=== PATIENT | female | born 1940 | race Caucasian/White ===

== ENCOUNTER → 2016-09-14 | Outpatient (CLI) | payer MEDICARE | END | disposition home or self-care (01) | LOC: PCVCCLINIC 13:49 | PROVIDERS: ATTEND Internal Medicine Cardiovascular Disease | DX: I25.10 Atherosclerotic heart disease of native coronary artery without angina pectoris (principal); I10 Essential (primary) hypertension; I71.4 Abdominal aortic aneurysm, without rupture; I73.9 Peripheral vascular disease, unspecified; J44.9 Chronic obstructive pulmonary disease, unspecified; I51.7 Cardiomegaly; E78.5 Hyperlipidemia, unspecified; K21.9 Gastro-esophageal reflux disease without esophagitis; Z89.421 Acquired absence of other right toe(s); Z87.891 Personal history of nicotine dependence; Z88.5 Allergy status to narcotic agent; Z79.899 Other long term (current) drug therapy | CPT/HCPCS: 80061; 93005; G0463 ==

== ENCOUNTER → 2017-01-03 | Outpatient (CLI) | payer MEDICARE ==
--- NOTE | 2017-01-03 12:05 | PCVCIMAG ---
APPROVED REPORT Study performed: 01/03/2017 08:58:51 EXAM: Comprehensive 2D, Doppler, and color-flow Echocardiogram Patient Location: Echo lab Status: routine BSA: 1.56 HR: 67 bpmBP: 110/70 mmHg Rhythm: NSR Other Information Study Quality: Adequate Risk Factors: Cardiac Risk Factors: HTN Indications Congestive Heart Failure Dyspnea 2D Dimensions LVEF(%): 20.40 (>50%) IVSd: 9.67 (7-11mm) LVDd: 56.72 mm PWd: 10.82 (7-11mm)Ascending Ao: 35.57 (22-36mm) LVDs: 51.38 (25-40mm) Left Atrium: 44.49 (27-40mm) Aortic Root: 36.12 mm LV Single Plane 4CH: 33.55 % LV Single Plane 2CH: 36.09 %Weiss's LVEF: 34.82 % Biplane EF: 35.7 % Volumes Left Atrial Volume (Systole) Single Plane 4CH: 99.19 mLSingle Plane 2CH: 116.49 mL LA ESV Index: 69.00 mL/m2 Aortic Valve AoV Peak Matt.: 1.32 m/s AO Peak Gr.: 7.00 mmHgLVOT Max P.89 mmHg LVOT Max V: 0.69 m/s AI Vmax: 4.38 m/s AI Knott: 3.80 m/s2 AI PHT: 334.20 ms Mitral Valve E/A Ratio: 2.3 MV Decel. Time: 206.63 ms MV E Max Matt.: 1.15 m/s MV A Matt.: 0.50 m/s IVRT: 128.03 ms Pulmonary Valve PV Peak Matt.: 0.68 m/sPV Peak Gr.: 1.86 mmHg Pulmonary Vein P Vein S: 0.38 m/sP Vein A: 0.39 m/s P Vein D: 0.66 m/sP Vein A Dur.: 141.9 msec P Vein S/D Ratio: 0.58 Tricuspid Valve TR Peak Matt.: 2.25 m/s TR Peak Gr.: 20.18 mmHg Left Ventricle The left ventricle is normal size. There is normal LV segmental wall motion. There is normal left ventricular wall thickness. Left ventricular systolic function is moderate to severely decreased. LVEF is 35%. Grade I - abnormal relaxation pattern. Right Ventricle The right ventricle is normal size. The right ventricular systolic function is normal. Atria Left atrium is severely dilated. The right atrium size is normal. Aortic Valve The aortic valve is normal in structure. Moderate aortic regurgitation. There is no aortic valvular stenosis. Mitral Valve The mitral valve is normal in structure. Moderate mitral regurgitation. No evidence of mitral valve stenosis. Tricuspid Valve The tricuspid valve is normal in structure. Mild tricuspid regurgitation with PAP of 27 mmHg. Pulmonic Valve The pulmonary valve is normal in structure. There is no pulmonic valvular regurgitation. Great Vessels The aortic root is normal in size. IVC is normal in size and collapses with >50% inspiration Pericardium There is no pericardial effusion. <Conclusion> The left ventricle is normal size. Left ventricular systolic function is moderate to severely decreased. LVEF is 35%. Grade I - abnormal relaxation pattern. The right ventricle is normal size. Left atrium is severely dilated. The right atrium size is normal. Moderate aortic regurgitation. There is no aortic valvular stenosis. Moderate mitral regurgitation. Mild tricuspid regurgitation with PAP of 27 mmHg. There is no pericardial effusion.
== END | disposition home or self-care (01) ==
LOC: PCVCIMAG 08:49
PROVIDERS: ATTEND Internal Medicine Cardiovascular Disease
DX: I11.0 Hypertensive heart disease with heart failure (principal); I25.10 Atherosclerotic heart disease of native coronary artery without angina pectoris; I73.9 Peripheral vascular disease, unspecified; I42.8 Other cardiomyopathies; E78.00 Pure hypercholesterolemia, unspecified; J44.9 Chronic obstructive pulmonary disease, unspecified; I71.4 Abdominal aortic aneurysm, without rupture; I50.9 Heart failure, unspecified; I08.3 Combined rheumatic disorders of mitral, aortic and tricuspid valves; Z79.82 Long term (current) use of aspirin; Z79.899 Other long term (current) drug therapy; Z87.891 Personal history of nicotine dependence
CPT/HCPCS: 36415; 93005; 93306; G0463

== ENCOUNTER → 2017-07-25 | Outpatient (CLI) | payer MEDICARE | END | disposition home or self-care (01) | LOC: PCVCIMAG 09:59 | DX: I25.10 Atherosclerotic heart disease of native coronary artery without angina pectoris (principal); I73.9 Peripheral vascular disease, unspecified; E78.00 Pure hypercholesterolemia, unspecified; I10 Essential (primary) hypertension; I42.9 Cardiomyopathy, unspecified; I71.4 Abdominal aortic aneurysm, without rupture; J44.9 Chronic obstructive pulmonary disease, unspecified; Z88.8 Allergy status to other drugs, medicaments and biological substances; Z87.891 Personal history of nicotine dependence; Z79.899 Other long term (current) drug therapy | CPT/HCPCS: 93978; G0463 ==

== ENCOUNTER → 2018-02-17 | Outpatient (CLI) | payer MEDICARE ==
--- NOTE | 2018-02-17 11:01 | PCVCIMAG ---
APPROVED REPORT Study performed: 02/17/2018 09:49:11 EXAM: Comprehensive 2D, Doppler, and color-flow Echocardiogram Patient Location: Echo lab Status: routine BSA: 1.60 HR: 74 bpmBP: 176/84 mmHg Rhythm: NSR Other Information Study Quality: Adequate Risk Factors: Cardiac Risk Factors: HTN Indications CAD Cardiomyopathy 2D Dimensions IVSd: 9.98 (7-11mm) LVDd: 50.86 mm PWd: 10.50 (7-11mm)Ascending Ao: 36.88 (22-36mm) LVDs: 45.31 (25-40mm) Left Atrium: 40.87 (27-40mm) Aortic Root: 36.63 mm LV Single Plane 4CH: 39.95 % LV Single Plane 2CH: 40.26 % Biplane EF: 40.0 % Volumes Left Atrial Volume (Systole) Single Plane 4CH: 90.46 mLSingle Plane 2CH: 75.36 mL LA ESV Index: 54.00 mL/m2 Aortic Valve AoV Peak Matt.: 1.41 m/s AO Peak Gr.: 7.93 mmHgLVOT Max P.31 mmHg LVOT Mean P.09 mmHg LVOT Max V: 0.76 m/s LVOT Mean V: 0.49 m/s LVOT V1 VTI: 15.28 cm AI Vmax: 5.03 m/s AI [place]: 3.63 m/s2 AI PHT: 401.41 ms Mitral Valve E/A Ratio: 0.7 MV Decel. Time: 255.42 ms MV E Max Matt.: 0.66 m/s MV A Matt.: 0.95 m/s IVRT: 152.25 ms Pulmonary Valve PV Peak Matt.: 0.95 m/sPV Peak Gr.: 3.61 mmHg Pulmonary Vein P Vein S: 0.21 m/sP Vein A: 0.32 m/s P Vein D: 0.27 m/sP Vein A Dur.: 145.3 msec P Vein S/D Ratio: 0.78 Tricuspid Valve TR Peak Matt.: 2.37 m/s TR Peak Gr.: 22.53 mmHg Left Ventricle The left ventricle is normal size. There is normal LV segmental wall motion. There is normal left ventricular wall thickness. Left ventricular systolic function is moderately decreased.globally LVEF is 35-40%. Grade I - abnormal relaxation pattern. Right Ventricle The right ventricle is normal size. The right ventricular systolic function is normal. Atria Left atrium is severely dilated. Right atrium is mildly dilated. Aortic Valve Mild aortic valve sclerosis. Moderate aortic regurgitation. There is no aortic valvular stenosis. Mitral Valve The mitral valve is normal in structure. Moderate eccentric, posterior mitral regurgitation. No evidence of mitral valve stenosis. Tricuspid Valve The tricuspid valve is normal in structure. Mild tricuspid regurgitation with PAP of 33 mmHg. Pulmonic Valve The pulmonary valve is normal in structure. Trace pulmonic regurgitation. Great Vessels The aortic root is normal in size. IVC is normal in size and collapses >50% with inspiration. Pericardium There is no pericardial effusion. There is no pleural effusion. <Conclusion> The left ventricle is normal size. Left ventricular systolic function is moderately decreased.globally LVEF is 35-40%. Grade I - abnormal relaxation pattern. The right ventricle is normal size. Left atrium is severely dilated. Right atrium is mildly dilated. Mild aortic valve sclerosis. Moderate aortic regurgitation. Moderate eccentric, posterior mitral regurgitation. Mild tricuspid regurgitation with PAP of 33 mmHg. The aortic root is normal in size. There is no pericardial effusion.
== END | disposition home or self-care (01) ==
LOC: PCVCIMAG 09:49
PROVIDERS: ATTEND Internal Medicine Cardiovascular Disease
DX: I08.3 Combined rheumatic disorders of mitral, aortic and tricuspid valves (principal); I25.10 Atherosclerotic heart disease of native coronary artery without angina pectoris; I73.9 Peripheral vascular disease, unspecified; I71.4 Abdominal aortic aneurysm, without rupture; I42.5 Other restrictive cardiomyopathy; I11.9 Hypertensive heart disease without heart failure; E78.00 Pure hypercholesterolemia, unspecified; K21.9 Gastro-esophageal reflux disease without esophagitis; G89.4 Chronic pain syndrome; J44.9 Chronic obstructive pulmonary disease, unspecified; Z87.891 Personal history of nicotine dependence
CPT/HCPCS: 36415; 80061; 93005; 93306; G0463

== ENCOUNTER → 2018-04-18 | Outpatient (CLI) | payer MEDICARE ==
--- NOTE | 2018-04-18 22:33 | PCVCIMAG ---
EXAM: AORTOILIAC DUPLEX INDICATION: Previous reported open repair of abdominal aortic aneurysm. FINDINGS: AORTA: Suprarenal aorta measures maximum diameter of 3.3 cm. There is a fusiform infrarenal aortic aneurysm. The infrarenal aorta measures maximum diameter of 3.2 x 3.8 cm. No aortic stenosis. RIGHT COMMON ILIAC ARTERY: Maximum diameter is 1.4 cm. No significant stenosis. RIGHT EXTERNAL ILIAC ARTERY: No significant stenosis. LEFT COMMON ILIAC ARTERY: Maximum diameter is 1.3 cm. No significant stenosis. LEFT EXTERNAL ILIAC ARTERY: Mild stenosis distal vessel with areas of shadowing mid vessel. IMPRESSION: 3.8 cm infrarenal abdominal aortic aneurysm. Findings similar to July 2017 study. Mild stenosis distal viejas left external iliac artery. LOC:OFFICE
--- NOTE | 2018-04-18 22:36 | PCVCIMAG ---
EXAM: BILATERAL LOWER EXTREMITY ARTERIAL DUPLEX INDICATION: Peripheral Arterial Disease. Leg pain. FINDINGS: Right Leg: Common femoral and profunda femoral arteries are patent. Superficial femoral artery and popliteal artery are patent. Occlusion the mid/distal anterior tibial artery. The peroneal and posterior tibial arteries are patent. Left Leg: Common femoral and profunda femoral arteries are patent. Superficial femoral artery and popliteal artery are patent. Occlusion the mid/distal anterior tibial artery. The peroneal and posterior tibial arteries are patent. IMPRESSION: Occlusion mid/distal right anterior tibial artery. Otherwise no flow limiting stenosis in the right lower extremity. Occlusion mid/distal left anterior tibial artery. Otherwise no flow limiting stenosis in the left lower extremity. LOC:OFFICE
== END | disposition home or self-care (01) ==
LOC: PCVCIMAG 12:31
PROVIDERS: ATTEND Internal Medicine Cardiovascular Disease
DX: I71.4 Abdominal aortic aneurysm, without rupture (principal); I73.9 Peripheral vascular disease, unspecified; E78.00 Pure hypercholesterolemia, unspecified
CPT/HCPCS: 93925; 93978

== ENCOUNTER → 2018-12-08 | Outpatient (CLI) | payer MEDICARE | END | disposition home or self-care (01) | LOC: PCVCCLINIC 15:08 | PROVIDERS: ATTEND Internal Medicine Cardiovascular Disease | DX: I25.10 Atherosclerotic heart disease of native coronary artery without angina pectoris (principal); I10 Essential (primary) hypertension; R94.31 Abnormal electrocardiogram [ECG] [EKG]; I42.9 Cardiomyopathy, unspecified; I36.1 Nonrheumatic tricuspid (valve) insufficiency; I65.23 Occlusion and stenosis of bilateral carotid arteries; I71.4 Abdominal aortic aneurysm, without rupture; E78.00 Pure hypercholesterolemia, unspecified; F41.9 Anxiety disorder, unspecified; J44.9 Chronic obstructive pulmonary disease, unspecified; K21.9 Gastro-esophageal reflux disease without esophagitis; Z79.82 Long term (current) use of aspirin; Z79.899 Other long term (current) drug therapy; Z90.49 Acquired absence of other specified parts of digestive tract; Z90.710 Acquired absence of both cervix and uterus; Z82.49 Family history of ischemic heart disease and other diseases of the circulatory system; Z80.0 Family history of malignant neoplasm of digestive organs; Z87.891 Personal history of nicotine dependence; Z88.5 Allergy status to narcotic agent | CPT/HCPCS: 36415; 80061; 93005; G0463 ==